=== PATIENT | female | born 1960 | race Caucasian/White ===

== ENCOUNTER 2016-06-12 06:58 | Day surgery (SDC) | payer OTHER ==
[2016-06-12 07:12] VITALS: RESP 16
[2016-06-12] MEDS ORDERED: ASPIRIN 81 MG CHEWABLE TAB PO ONE (07:15)
--- NOTE | 2016-06-12 07:17 | EDPHY ---
H & P Stated Complaint: L sided CP @ 4am;resolved now;assoc w/SOB Time Seen by Provider: 06/12/16 07:16 - Personal History LMP (Females 10-55): Post Menopausal Current Tetanus Diphtheria and Acellular Pertussis (TDAP): Yes - Medical/Surgical History Other PMH: thyroid. cholesterol. idiopathic urticaria w/hives - Social History Smoking Status: Former smoker Constitutional: Initial Vital Signs Temperature (C) 36.5 C 06/12/16 07:00 Heart Rate 66 06/12/16 07:00 Respiratory Rate 16 06/12/16 07:00 Blood Pressure 169/98 H 06/12/16 07:00 O2 Sat (%) 98 06/12/16 07:00 O2 Delivery Mode Room Air Allergies/Adverse Reactions: Sulfa (Sulfonamide Antibiotics) Allergy (Mild, Verified 06/12/16 07:08) Rash Home Medications: Medication Instructions Recorded Atorvastatin Calcium [Lipitor 40 40 mg PO 06/12/16 mg (*)] B 12 Shot 06/12/16 Estradiol [Estradiol 1 MG (*)] 1 mg PO DAILY 06/12/16 Injection For Hives 06/12/16 Levothyroxine [Synthroid 100 mcg 100 mcg PO DAILY06 06/12/16 (*)] Medical Decision Making ED Course/Re-evaluation: CHIEF COMPLAINT: Chest pain HISTORY OF PRESENT ILLNESS: The patient is a 56 y/o female arriving with her complaining of acute onset sharp chest pain that woke her from sleep around 04:30 this morning. Her pain then became "crushing" in nature and located primarily in her left anterior chest and waxed and waned for a short time. Her pain has reduced in severity since onset, but is still present and associated with nausea. No associated shortness of breath, lightheadedness. She has never experienced these symptoms previously. She denies heavy lifting, physical activity, trauma, or recent long travel. She had a possible preop stress test 10 years ago that was normal. Cardiac risk factors include being a former smoker and mild hypertension. No hypercholesteremia or family history of cardiac disease. REVIEW OF SYSTEMS: A 10 point review of systems was performed and is negative with the exception of the elements mentioned in the history of present illness. PHYSICAL EXAM: HR, BP, O2 Sat, RR. Temp noted General Appearance: Alert, obese, well hydrated, appropriate, and non-toxic appearing. Head: Atraumatic without scalp tenderness or obvious injury Eyes: Pupils equal, round, reactive to light and accommodation, EOMI, no trauma , no injection. Ears: Clear bilaterally, no perforation, normal landmarks Nose: Atraumatic, no rhinorrhea, clear. Throat: There is no erythema or exudates, no lesions, normal tonsils, mucus membranes moist. Neck: Supple, 2+ carotid upstroke, nontender, no lymphadenopathy. Respiratory: No retractions, no distress, no wheezes, and no accessory muscle use. Lungs are clear to auscultation bilaterally. Cardiovascular: Regular rate and rhythm, no murmurs, rubs, or gallops. Bilateral carotid, radial, dorsalis pedis, and posterior tibial pulses intact. Good capillary refill all extremities. Gastrointestinal: Abdomen is soft, nontender, non-distended, no masses, no rebound, no guarding, no peritoneal signs. Musculoskeletal: Normal active ROM of all extremities, atraumatic. Neurological: Alert, appropriate, and interactive. The patient has normal DTRs and non-focal cranial nerves, motor, sensory, and cerebellar exam. Skin: No rashes, good turgor, no nodules on palpation. Past medical history: Mild hypertension not on treatment Past surgical history: Hysterectomy Family history: Negative for cardiac Social history: Former smoker teenager to age 47. at bedside. PCP: Dr. Aaliyah Turpin DIAGNOSTICS/PROCEDURES/CRITICAL CARE TIME: The 12 lead EKG was interpreted by myself. Sinus rhythm rate 64. Possible ST elevation lead II, may be related to RBBB, no elevation in contiguous leads. See hard copy and/or "tracemaster" electronic copy for interpretation. Study: Chest x-ray Indication: Pain Results: Chest x-ray was obtained. The results of the study are retrocardiac mass likely hiatal hernia, otherwise negative. The study was read by the radiologist, Dr. Milligan. I viewed the images myself on the PACS system. ECHOCARDIOGRAPHY: Indication: chest pain,SOB Procedure: Limited transthoracic 2D echocardiogram. A limited transthoracic echocardiogram was performed by the echocardiogram technologists and interpreted by Dr. Chaudhary. Limited transthoracic echocardiogram: The pericardium was visualized and found to be negative for pericardial fluid. Cardiac activity and EF was normal. No obvious structural or valve abnormalities. Impression: normal DIFFERENTIAL DIAGNOSIS: The differential diagnosis for the patient's chest pain included but was not limited to myocardial ischemia, pulmonary embolus, chest wall pain, pleural inflammation, and pulmonary infectious causes. MEDICAL DECISION MAKING: This is a 56 y/o female with no prior history of cardiac disease presenting to the ED with continued chest pain and pressure that woke her from sleep this morning, about 3 hours ago. She does have a history of mild hypertension that she is not on treatment for and a ~30-year history of smoking. She has associated nausea, but no shortness of breath. Exam is unremarkable and pain is not reproducible. She received 324mg PO aspirin and 0.4 SL nitro upon arrival. IV established and labs drawn including CBC, CHEM, troponin, Mg, PTPTT. Patient placed on patient monitor. Chest x-ray and echo ordered. EKG shows sinus rhythm rate 64, possible elevation lead II. 0737: Consulted Dr. Chaudhary, cardiology. He will assess patient in the ED. 0808: Reassessed patient. Chest pain completely resolved with nitro. Awaiting official echo read, appears normal. Troponin is normal. 0850: Dr. Chaudhary is in the ED assessing patient. He plans to take her to the propagator laborer. - Data Points Laboratory Results: Laboratory Results 06/12/16 07:31 06/12/16 07:25 06/12/16 06/12/16 07:31 07:25 WBC 6.58 10^3/uL (3.80-9.50) RBC 4.23 10^6/uL (4.18-5.33) Hgb 13.1 g/dL (12.6-16.3) Hct 39.1 % (38.0-47.0) MCV 92.4 fL (81.5-99.8) MCH 31.0 pg (27.9-34.1) MCHC 33.5 g/dL (32.4-36.7) RDW 13.6 % (11.5-15.2) Plt Count 275 10^3/uL (150-400) MPV 10.4 fL (8.7-11.7) Neut % (Auto) 49.5 % (39.3-74.2) Lymph % (Auto) 38.8 % (15.0-45.0) Pennington % (Auto) 7.6 % (4.5-13.0) Eos % (Auto) 3.0 % (0.6-7.6) Baso % (Auto) 0.8 % (0.3-1.7) Nucleat RBC Rel Count 0.0 % (0.0-0.2) Absolute Neuts (auto) 3.26 10^3/uL (1.70-6.50) Absolute Lymphs (auto) 2.55 10^3/uL (1.00-3.00) Absolute Monos (auto) 0.50 10^3/uL (0.30-0.80) Absolute Eos (auto) 0.20 10^3/uL (0.03-0.40) Absolute Basos (auto) 0.05 10^3/uL (0.02-0.10) Absolute Nucleated RBC 0.00 10^3/uL (0-0.01) Immature Gran % 0.3 % (0.0-1.1) Immature Gran # 0.02 10^3/uL (0.00-0.10) Sodium 141 mEq/L (134-144) Potassium 4.8 mEq/L (3.5-5.2) Chloride 106 mEq/L (97-110) Carbon Dioxide 24 mEq/l (22-31) Anion Gap 11 mEq/L (8-16) BUN 18 mg/dL (7-23) Creatinine 0.7 mg/dL (0.6-1.0) Estimated GFR > 60 Glucose 111 H mg/dL (70-100) Calcium 9.4 mg/dL (8.5-10.4) Magnesium 2.0 mg/dL (1.6-2.3) Troponin I < 0.012 ng/mL (0-0.034) Medications Given: Discontinued Medications Aspirin (Aspirin) 325 mg PO EDNOW ONE Stop: 06/12/16 07:16 Last Admin: 06/12/16 07:35 Dose: 325 mg Sodium Chloride (Ns) 500 mls @ 0 mls/hr IV ONCE ONE PRN Reason: As Directed Stop: 06/12/16 07:32 Last Admin: 06/12/16 07:44 Dose: 500 mls Nitroglycerin (Nitrostat) 0.4 mg SL EDNOW ONE Stop: 06/12/16 07:36 Last Admin: 06/12/16 07:44 Dose: 0.4 mg Departure - Departure Disposition: [facility] Acute Clinical Impression: Chest pain Qualifiers: Chest pain type: other chest pain Qualifier Code: (R07.89) Other chest pain Condition: Good Referrals: Aaliyah Turpin ASSOCIATE FINANCIAL ANALYST [Primary Care Provider] - As per Instructions Report Scribed for: Kwan Mathur Report Scribed by: Tiki Dunham Date of Report: 06/12/16 Time of Report: 07:18
--- NOTE | 2016-06-12 07:19 | CPEKG ---
Heart Rate: 64 RR Interval: 938 P-R Interval: 140 QRSD Interval: 102 QT Interval: 428 QTC Interval: 442 P Gunnison: 2 QRS Gunn[place]: 30 T Wave Gunnison: 49 EKG Severity - NORMAL ECG - EKG Impression: SINUS RHYTHM Electronically Signed By: Kwan Mathur 12-Jun-2016 14:31:23
[2016-06-12] MEDS ORDERED: NS 500 ML IV ONE (07:31)
[2016-06-12] MEDS ORDERED: NITROGLYCERIN 0.4 MG BTL SL ONE (07:35)
[2016-06-12 07:42] LABS: % IMMATURE GRANULYOCYTES 0.3 % (0.0-1.1); ABSOLUTE IMMATURE GRANULOCYTES 0.02 10^3/uL (0.00-0.10); ADD DIFF? NO; ADD MORPH? NO; ADD SCAN? NO; ATYPICAL LYMPHOCYTE FLAG 10 (0-99); FRAGMENT RBC FLAG 0 (0-99); HEMATOCRIT 39.1 % (38.0-47.0); HEMOGLOBIN 13.1 g/dL (12.6-16.3); LEFT SHIFT FLG 0 (0-99); LIPEMIA HEMOLYSIS FLAG 80 (0-99); MEAN CELL HEMOGLOBIN CONCENTR. 33.5 g/dL (32.4-36.7); MEAN CELL VOLUME 92.4 fL (81.5-99.8); MEAN PLATELET VOLUME 10.4 fL (8.7-11.7); PLATELET CLUMPS FLAG 0 (0-99); PLATELET COUNT 275 10^3/uL (150-400); RED BLOOD CELL COUNT 4.23 10^6/uL (4.18-5.33); RED CELL DISTRIBUTION WIDTH 13.6 % (11.5-15.2)
[2016-06-12 07:57] LABS: ANION GAP 11 mEq/L (8-16); CALCIUM 9.4 mg/dL (8.5-10.4); CARBON DIOXIDE 24 mEq/l (22-31); CHLORIDE 106 mEq/L (97-110); CREATININE 0.7 mg/dL (0.6-1.0); GLOMERULAR FILTRATION RATE > 60; GLUCOSE 111 mg/dL (70-100); POTASSIUM 4.8 mEq/L (3.5-5.2); SODIUM 141 mEq/L (134-144)
[2016-06-12 08:08] LABS: TROPONIN I < 0.012 ng/mL (0-0.034)
--- NOTE | 2016-06-12 08:23 | DX ---
AP and Lateral Chest June 12, 2016 History: Chest pain. Comparison: None available. Findings: There is a round retrocardiac opacity that could be related to a moderate hiatal hernia. No pneumothorax or pleural effusion. Heart size is normal. Mild degenerative change is present in the s pine. Impression: Rounded retrocardiac opacity most likely related to a hiatal hernia but indeterminate on plain film. CT could be performed for definitive evaluation. Findings discussed with Kwan Mathur today at 0821 hours.
--- NOTE | 2016-06-12 08:24 | CPEKG ---
Heart Rate: 64 RR Interval: 938 P-R Interval: 136 QRSD Interval: 104 QT Interval: 424 QTC Interval: 438 P [place]: 4 QRS [place]: 26 T Wave [place]: 51 EKG Severity - NORMAL ECG - EKG Impression: SINUS RHYTHM Electronically Signed By: Kwan Mathur 12-Jun-2016 14:31:23
[2016-06-12] MEDS ORDERED: ACETAMINOPHEN 325 MG TAB PO PRN ×3 (09:08→13:21)
[2016-06-12] MEDS ORDERED: ASPIRIN EC 325 MG TAB PO ONE ×2 (09:08)
[2016-06-12] MEDS ORDERED: diphenhydrAMINE 25 MG CAP PO ONE ×2 (09:08→09:28)
[2016-06-12] MEDS ORDERED: TEMAZEPAM 15 MG CAP PO PRN ×2 (09:08→10:09)
[2016-06-12] MEDS ORDERED: NITROGLYCERIN 0.4 MG BTL SL PRN ×2 (09:08→10:09)
[2016-06-12] MEDS ORDERED: DIAZEPAM 5 MG TAB PO ONE (09:08)
[2016-06-12] MEDS ORDERED: FAMOTIDINE 20 MG TAB PO ONE (09:26)
[2016-06-12] MEDS ORDERED: DIAZEPAM 5 MG TAB ONE (09:28)
[2016-06-12 09:53] VITALS: BP 129/95; PULSE 71; TEMP 98.4; O2SAT 97
[2016-06-12 09:53] LABS: ALANINE AMINOTRANSFERASE 36 IU/L (9-52); ALBUMIN 3.6 g/dL (3.5-5.0); AMYLASE 44 IU/L (30-110); ASPARTATE AMINOTRANSFERASE 30 IU/L (14-46); BILIRUBIN,TOTAL 0.4 mg/dL (0.1-1.4); BILIRUBIN-CONJUGATED 0.3 mg/dL (0.0-0.5); BILIRUBIN-UNCONJUGATED 0.1 mg/dL (0.0-1.1); CHOLESTEROL 148 mg/dL (140-220); CHOLESTEROL/HDL RATIO 3.36 RATIO (1.00-4.44); HIGH DENSITY LIPOPROTEIN 44 mg/dL (40-85); LDL/HDL RATIO 1.23 RATIO (1.00-3.22); LOW DENSITY LIPOPROTEIN 54 mg/dL (80-100); NON-HIGH DENSITY LIPOPROTEIN 104 mg/dL (90-129); TOTAL PROTEIN 6.5 g/dL (6.3-8.2); TRIGLYCERIDE 252 mg/dL (35-135); VERY LOW DENSITY LIPOPROTEINS 50 mg/dL (8-25)
[2016-06-12] MEDS ORDERED: MIDAZOLAM 2 MG/2 ML VIAL ONE ×3 (10:09→10:35)
[2016-06-12] MEDS ORDERED: fentaNYL 100 MCG/2 ML INJ ONE ×4 (10:09→13:18)
[2016-06-12 10:12] LABS: APTT 25.4 SEC (23.0-38.0); PROTIME(PATIENT) 12.8 SEC (12.0-15.0)
[2016-06-12 10:13] LABS: INR 0.97 (0.83-1.16)
[2016-06-12] MEDS ORDERED: LIDOCAINE 1% 30 ML SDV ONE (10:32)
[2016-06-12] MEDS ORDERED: IOPAMIDOL (ISOVUE-370) 150 ML BTL IV ONE (10:33)
[2016-06-12] MEDS ORDERED: HEPARIN 10,000 UNIT/10 ML MDV ONE (10:33)
[2016-06-12] MEDS ORDERED: VERAPAMIL 5 MG/2 ML VIAL ONE ×2 (10:33→10:34)
--- NOTE | 2016-06-12 10:42 | SUROPNOTE ---
[facility] Operative Report - Surgery Date of Procedure: 06/12/16 Indication: This patient is a 56 year old woman who presented to the emergency department this morning after being woken from sleep with acute sharp, crushing chest pain at 4:30am this morning. This pain was constant, localized to the left anterior chest, and waxed and waned. This pain persisted until given nitroglycerin in the emergency department. Symptoms are associated with nausea. Cardiac risk factors include 30 year past smoking history and hypertension. No stress testing was performed secondary to resting chest pain. Plan for urgent left heart catheterization secondary to Dawes cardiovascular class IV angina. Procedures performed: 1. Left heart catheterization with left ventricular and selective coronary angiography. Description of procedure: Description, risks, benefits and alternatives were discussed in detail. Informed consent was obtained. The patient was brought to the catheterization laboratory where a timeout was performed. The right wrist was sterilely prepped and draped. 2% lidocaine utilized for local anesthetic. A 5/6-Portuguese slender hemostatic sheath placed right radial artery utilizing micropuncture technique. Intraarterial verapamil and intravenous heparin was administered. Diagnostic coronary angiography performed with 6-Portuguese, Kerry left-3.5 and Kerry right -4 catheter. The 6-Portuguese Kerry left-3.5 catheter was unable to engage the left coronary system; instead a 5-Portuguese Seth and Kerry left-3 catheter was utilized for diagnostic angiography of the left coronary system, ultimately successful with the JL3. Catheters were passed over a 0.035 guidewire, short J Glidewire, and short angled Glidewire. Pigtail catheter was then utilized for left heart catheterization and left ventricular angiography. Arterial sheath was removed and TR band was placed. Findings: 1. Hemodynamics: Aortic pressure 135/73, mean of 93, left ventricular pressure 127/17/24 end-diastolic. There was no significant pull back gradient across the aortic valve. 2. Left ventricle: The left ventricle appears normal in size. Left ventricle is normal shape. Segmental wall motion is normal with an ejection fraction of 65 %. There are no filling defects or significant mitral regurgitation. The aortic root and ascending aorta appears normal, there is no dissection or aneurysm formation. 3. Coronary angiography: Left main: The left main is a long, moderately large bifurcating vessel, free of disease. 4. Left anterior descending: This is a moderate size vessel continuing to the apex. There is a moderately large proximal diagonal branch. Contains mild luminal irregularities, with no significant stenosis. 5. Circumflex: The circumflex has a moderately large proximal obtuse marginal branch and moderately large posterolateral. Free of disease. 6. Right coronary: Moderately large dominant vessel. Moderately large PDA, moderate posterolateral. The right coronary has up to a 30% proximal ostial stenosis, otherwise mild luminal irregularities. Overall Impression: 1. Minimal-mild non-obstructive coronary artery disease. 2. Normal left ventricular systolic function, with ejection fraction of 65%. Plan: 1. Aggressive risk modification and statin therapy. 2. Right upper quadrant abdominal ultrasound 3. Outpatient evaluation with primary care provider Dr. Aaliyah Turpin for other possible etiologies of chest pain. Portions of this report were documented by a biomedical analytical scientist. I have reviewed this report and agree with the documentation. Report scribed for Dr. Asa Chaudhary. Report scribed by Aaliyah Andrade.
[2016-06-12] MEDS ORDERED: ONDANSETRON 4 MG/2 ML VIAL IVP PRN (10:52)
[2016-06-12] MEDS ORDERED: ATROPINE SULFATE 1 MG/10 ML SYR IVP PRN (10:52)
[2016-06-12] MEDS ORDERED: HYDROCODONE/APAP 5/325 TAB PO PRN (10:52)
--- NOTE | 2016-06-12 11:36 | GHP ---
[f rep st] HISTORY AND PHYSICAL DATE OF ADMISSION: 06/12/2016 DATE OF EVALUATION: 06/12/2016 REFERRING PHYSICIAN: Kwan Mathur MD INDICATION: Nitroglycerin responsive chest pain. HISTORY OF PRESENT ILLNESS: Patient denies any previous cardiac history. Approximately 4 months ago , she had an episode of very mild substernal chest pressure which did not recur or cause her to seek medical attention. She otherwise has been in her normal state of health until the middle of the h t last night, when she awoke with waxing and waning severe substernal chest pain and pressure. Despi te changing positions multiple times, she was unable to make it better and it actually became "crushi ng." She had some shortness of breath and difficulty breathing. After a couple of hours, she took a shower and asked her to bring her to the emergency department. On the way, the pain began t o resolve but was still present on arrival. Patient was given sublingual nitroglycerin with complete resolution of discomfort. There was radiation to the back and left neck. There was some nausea and a feeling of being hot without diaphoresis. There is no lightheadedness, dizziness, syncope, palpit ations, near syncope. CARDIAC RISK FACTORS: Treated hyperlipidemia with history of treated hypertriglyceridemia. New diag nosis of hypertension which has not required treatment. Previous cigarette smoking approximately 30 pack years, stopping 9 years ago. No family history of early coronary disease. No personal history of diabetes. PAST MEDICAL HISTORY: Hypothyroidism, pernicious anemia, idiopathic chronic urticaria, gastroesophag eal reflux, hiatal hernia, hysterectomy, hemorrhoidectomy, knee surgery. CURRENT MEDICATIONS: Atorvastatin, fenofibrate, Xolair, Synthroid, intermittent B12 and Prevacid b.i .d. ALLERGIES: Sulfa and Macrodantin. FAMILY HISTORY: Negative for coronary disease. A brother has diabetes. SOCIAL HISTORY: She lives in [place] with her . 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 She has 2 caffeinated beverages a day and alcohol a couple of nights a week. She has 35-y ear-old and 29-year-old children, and 5 grandchildren. REVIEW OF SYSTEMS: This is otherwise completely negative without nausea, vomiting, diarrhea. No hea dache. No fever or chills. PHYSICAL EXAM: GENERAL: The patient is overweight. VITAL SIGNS: Initial blood pressure 169/98, la ter it was 129/95, pulse rate is 70 and regular, jugular venous pressure is low. Carotids are 2+ wit hout bruits. Patient is afebrile. LUNGS: Clear. CARDIAC: Without murmur, rub, or gallop. ABDOME N: Without masses, tenderness or bruits. EXTREMITIES: Femoral and distal pulses are normal. Kashmir 's test is normal bilaterally. There is no peripheral edema. EKG shows sinus rhythm, at a rate of 64 and is normal. Chest x-ray is normal except for hiatal hernia. LABORATORY STUDIES: Troponin is negative. Basic metabolic panel is normal. CBC is normal. Echocardiography: Unremarkable. IMPRESSION: 1. Substernal chest pain. Sudden onset, gradual relief spontaneously with complete relief of nitrog lycerin. Differential diagnosis includes angina, Prinzmetal angina, noncardiac chest pain such as es ophageal spasm, esophageal reflux, gallstone/cholecystitis, less likely pulmonary embolus, even less likely aortic dissection. 2. Treated hyperlipidemia. 3. Overweight. 4. High blood pressure, likely new diagnosis. PLAN: 1. D-dimer was checked and was normal. 2. Liver function tests were ordered and were normal except for mild elevation of alkaline phosphata se. 3. Amylase and lipase were checked and are normal. 4. H pylori antibody was checked and was negative. 5. Discussed the potential that this could be coronary artery disease with either accelerating unsta ble angina or Prinzmetal angina. Therefore, plan for cardiac catheterization. Risks, benefits, and alternatives were discussed in detail. Copy requested to: Aaliyah Turpin /[id number]/MODL
[2016-06-12] MEDS ORDERED: fentaNYL 100 MCG/2 ML INJ IVP PRN (13:22)
--- NOTE | 2016-06-12 13:37 | US ---
Complete Abdominal Sonogram Indications: Pain. Technique: Longitudinal and transverse transabdominal images are obtained. Findings: The liver measures 15.3 cm in the midaxillary line. The liver has increased echogenicity. N o sonographic mass or biliary dilation is identified. The gallbladder contains sludge. No cholelithi asis is seen and the gallbladder wall is not thickened. The right upper quadrant Dailey sign is negat denise. Common bile duct is normal caliber and measures 5 mm in diameter. The kidneys are unremarkable w ith no hydronephrosis. Incidentally, there is a 2 cm diameter simple cyst of the left kidney. The rig ht kidney measures 10.3 cm in cephalocaudal height and the left kidney measures 11.7 cm. Cortical thi ckness is estimated at 11.7 cm on the right and at 1.9 cm on the left. No free fluid is seen. The pancreas is normal. The spleen is normal size measuring 11.5 x 9.0 x 4.2 cm. The abdominal aorta is normal caliber and tapers normally. Impression: 1. Gallbladder sludge formation without cholelithiasis. 2. Increased hepatic echogenicity may reflect steatosis.
[2016-06-12 22:29] LABS: ALKALINE PHOSPHATASE 65 IU/L (38-126)
--- NOTE | 2016-06-15 16:18 | ECHO ---
[id number] + + [address] : : [place] [address] : : [phone] + + Adult Echocardiographic Report + ------+ :Name: Moshe ARORAfrancis Date: 06/12/2016 08:12 AM : : Hospital Admission Number: [id number] Locati on: ER: :: 1960 Gender: Female : :Age: 56 yrs Race: WH : :Reason For Study: Eval LV Fx : :History: New onset CP : + ------+ MMode/2D Measurements & Calculations IVSd: 1.0 cm LVIDd: 4.9 cm FS: 39.1 % Ao root diam: 2.6 cm LVPWd: 1.1 cm LVIDs: 3.0 cm EDV(Teich): 111.4 ml ACS: 1.9 cm ESV(Teich): 34.1 ml LA dimension: 3.4 cm EF(Teich): 69.4 % Normal Measurement Values: + + :LVIDd (3.5-5.7cm) IVSd (0.6-1.1cm) LVPWd (0.6-1.1cm) Aortic Root (2.0-3.7cm)Left Atrium (1.5-4.0cm): :LV Vol(d) (76-115ml) LV Vol(s) (29-48ml) Ejec Fraction (50-65%)PV Kurt (0.6- 1.2m/s) TV Kurt (0.4-1.0m/s) : :MV E Kurt (0.8-1.0m/s)MV A Kurt (0.3-1.0m/s)LVOT Kurt (0.7-1.2m/s) Asc Ao Kurt ( 0.9-1.8m/s) : + + Doppler Measurements & Calculations MV E max kurt: Ao V2 max: LV V1 max: PA V2 max: 59.2 cm/sec 115.4 cm/sec 80.0 cm/sec 96.4 cm/sec MV A max kurt: Ao max P.3 mmHg LV V1 max PG: PA max P.6 cm/sec 2.6 mmHg 3.7 mmHg MV E/A: 0.90 Left Ventricle The left ventricle is normal in size. There is normal left ventricular wall thickness. The left ventricular ejection fraction is normal. There is Doppler evidence for diastolic dysfunction. Ejection Fraction = 70%. Right Ventricle The right ventricle is normal in size and function. Atria The left atrial size is normal. Right atrial size is normal. Mitral Valve The mitral valve is normal in structure and function. There is no evidence of mitral valve prolapse. There is no mitral valve stenosis. There is trace to mild mitral regurgitation. Tricuspid Valve Normal tricuspid valve. No tricuspid regurgitation. Aortic Valve The aortic valve is normal in structure and function. There is no aortic stenosis. There is no aortic insufficiency. Pulmonic Valve The pulmonic valve is normal in structure and function. There is no pulmonic valvular regurgitation. Great Vessels The aortic root is normal size. Pericardium/Pleural There is no pericardial effusion. Conclusion A complete two-dimensional transthoracic echocardiogram was performed (2D, M-mode, Doppler and color flow Doppler). The left ventricular ejection fraction is normal. There is Doppler evidence for diastolic dysfunction. Ejection Fraction = 70%. The left atrial size is normal. The mitral valve is normal in structure and function. There is trace to mild mitral regurgitation. The aortic valve is normal in structure and function. There is no pericardial effusion. Final Reading Physician: Zion Vasquez signed on 06/15/2016 04:17 PM Ordering Physician: Kwan Mathur Performed By: Ez Farr, CS
== END 2016-06-12 16:35 | disposition home or self-care (01) ==
LOC: FCATH 10:08
PROVIDERS: ATTEND Internal Medicine Interventional Cardiology
PROC: 4A023N7 Measurement of Cardiac Sampling and Pressure, Left Heart, Percutaneous Approach (ICD-10-PCS; principal; 2016-06-12)
PROC: B2111ZZ Fluoroscopy of Multiple Coronary Arteries using Low Osmolar Contrast (ICD-10-PCS; 2016-06-12)
PROC: B2151ZZ Fluoroscopy of Left Heart using Low Osmolar Contrast (ICD-10-PCS; 2016-06-12)
DX: R07.9 Chest pain, unspecified (principal); R06.02 Shortness of breath; Z87.891 Personal history of nicotine dependence; E03.9 Hypothyroidism, unspecified; E78.5 Hyperlipidemia, unspecified; K21.9 Gastro-esophageal reflux disease without esophagitis; I10 Essential (primary) hypertension; D51.0 Vitamin B12 deficiency anemia due to intrinsic factor deficiency; L50.1 Idiopathic urticaria; K44.9 Diaphragmatic hernia without obstruction or gangrene; E66.9 Obesity, unspecified; Z68.33 Body mass index [BMI] 33.0-33.9, adult; Z78.0 Asymptomatic menopausal state; Z88.2 Allergy status to sulfonamides
CPT/HCPCS: 71020; 76700; 93005; 93458; C1769; J1644; J2250; J3010; Q9967

== ENCOUNTER 2017-01-20 07:38 | Emergency (ER) | payer OTHER ==
[2017-01-20 07:45] VITALS: BP 129/79; PULSE 71; RESP 16; TEMP 97.9; O2SAT 98
--- NOTE | 2017-01-20 08:15 | EDPHY ---
H & P Stated Complaint: Poss infection of skin under pannis Time Seen by Provider: 01/20/17 08:10 HPI/ROS: CHIEF COMPLAINT: Possible skin infection HISTORY OF PRESENT ILLNESS: This patient is a 56 year old female complaining of a possible infection in a skin fold in her suprapubic area. evening, she was working on remodeling her house with her when she stretched and felt a severe pain in her left suprapubic area. The next day, she noted an itchy, red, purulent area near her hysterectomy scar which became increasingly painful throughout the day. She has washed the area, applied warm compresses, and placed gauze which has improved the appearance of the area. She endorses recent weight loss and states her skin has been sagging more, and may have become stuck together in that area. She is concerned regarding a possible bacterial or fungal infection in the area. She denies fever, vomiting, shortness of breath, or other associated symptoms. She has no further complaints at this time. REVIEW OF SYSTEMS: A 10 point review of systems was performed and is negative with the exception of the elements mentioned in the history of present illness. - Personal History LMP (Females 10-55): Hysterectomy Current Tetanus Diphtheria and Acellular Pertussis (TDAP): Yes - Medical/Surgical History PMH: Hypothyroid, hyperlipidemia, idiopathic urticaria. Other PMH: thyroid. cholesterol. idiopathic urticaria w/hives - Social History Smoking Status: Former smoker Additional Social History: Former smoker. Lives in [place]. . Works at [employer]. - Physical Exam Exam: General Appearance: Alert and oriented x3, no acute distress Extremities: Nontender, no pedal edema Skin: Skin fold in the suprapubic area with a 4cm ring of raised erythema with central cleaning. Excoriated. No drainage. Neuro: Motor and sensory intact Vascular: Capillary refill brisk distally Constitutional: Initial Vital Signs Temperature (C) 36.6 C 01/20/17 07:43 Heart Rate 71 01/20/17 07:43 Respiratory Rate 16 01/20/17 07:43 Blood Pressure 129/79 H 01/20/17 07:43 O2 Sat (%) 98 01/20/17 07:43 O2 Delivery Mode Room Air Allergies/Adverse Reactions: Sulfa (Sulfonamide Antibiotics) Allergy (Mild, Verified 06/12/16 07:08) Rash Home Medications: Medication Instructions Recorded Atorvastatin Calcium [Lipitor 40 40 mg PO 06/12/16 mg (*)] B 12 Shot 06/12/16 Estradiol [Estradiol 1 MG (*)] 1 mg PO DAILY 06/12/16 Levothyroxine [Synthroid 100 mcg 100 mcg PO DAILY06 06/12/16 (*)] Clotrimazole [Antifungal] 1 applic TP BID #1 cream..g. 01/20/17 Xolair 01/20/17 Medical Decision Making ED Course/Re-evaluation: 56 year old female presents with a skin fold in the suprapubic area with a 4cm ring of raised erythema with central cleaning. Excoriated. No drainage. Appearance is consistent with tinea corporus. Plan to discharge home in good condition with a prescription for clotrimazole cream. Washing precautions discussed. Follow up and return precautions discussed. The patient is comfortable with this plan. Departure - Departure Disposition: Home, Routine, Self-Care Clinical Impression: Tinea corporis Condition: Good Instructions: Skin Yeast Infection (ED) Additional Instructions: 1. Use your Clotrimazole cream as prescribed twice a day until your symptoms have completely resolved. This medication is also available over the counter should you develop similar symptoms in the future. 2. Follow up with your primary care provider next week for continued evaluation or symptoms unresolved. 3. Wash carefully with soap and water. After you shower or bathe, be sure the area is dried thoroughly. 4. Return to the emergency department for increased redness, discharge, or pain , or if you develop fever, vomiting, or other worsening of condition. Referrals: Aaliyah Turpin, [facility] RO[facility] ATTENDANT [Primary Care Provider] - As per Instructions Prescriptions: Clotrimazole [Antifungal] 1 applic TP BID #1 cream..g. Report Scribed for: Lay Bowen Report Scribed by: Vane Costello Date of Report: 01/20/17 Time of Report: 08:14 Physician Review and Approval Statement: 01/20/17 08:14 Portions of this note were transcribed by a diagnostic medical sonographer. I personally performed a history, physical exam, medical decision making, and confirmed accuracy of information the transcribed note.
== END 2017-01-20 08:39 | disposition home or self-care (01) ==
DX: B35.4 Tinea corporis (principal); Z87.891 Personal history of nicotine dependence